=== PATIENT | female | born 1980 | race Caucasian/White ===

== ENCOUNTER 2017-07-01 08:13 | Emergency (ER) | payer OTHER ==
[~2017-07-01] VITALS: Ht 172.7 cm; Wt 75.8 kg
[~2017-07-01 08:13] MED LIST: ALBU90OI INH; AMOCLA875; AMOCLA875 PO; AMOX500 PO; ANTISEPTIC SKI237 ML TOP; AZIT500 PO; BENZ100A PO; Bactrim Ds Tab1 EACH PO; CEPH500 PO; Cleocin HCl150 MG PO; HIBICLENS120 ML EXT; HYDACE5 PO; HYDACE7.5 PO; HYDGUAL120; HYDGUAL120 PO; IBUP400; IBUP600 PO; IBUP800 PO; Keflex500 MG PO; Monodox100 MG PO; NAPR220 PO; OXYACE5T PO; PRED10 PO; PROBIOTIC1 EAC1 PO; Prilosec Otc20 MG PO; SPACER IH; SULTRIDS PO; Ultram50 MG PO; VITAMINS PO
[2017-07-01] MEDS ORDERED: IBUP800 PO (09:42)
== END 2017-07-01 10:32 | disposition home or self-care (01) ==
LOC: ER 08:13
DX: M77.12 Lateral epicondylitis, left elbow (principal); F17.210 Nicotine dependence, cigarettes, uncomplicated; Z86.19 Personal history of other infectious and parasitic diseases
CPT/HCPCS: 99282

== ENCOUNTER 2017-10-07 10:30 | Emergency (ER) | payer OTHER ==
[~2017-10-07] VITALS: Ht 170.2 cm; Wt 77.1 kg
[2017-10-07] MEDS ORDERED: HYDR1TAB94 PO (11:30)
[2017-10-07] MEDS ORDERED: IBUP400 PO (11:30)
[2017-10-07] MEDS ORDERED: Keflex500 MG PO (11:30)
== END 2017-10-07 12:12 | disposition home or self-care (01) ==
LOC: ER 10:30
DX: L02.31 Cutaneous abscess of buttock (principal); L03.317 Cellulitis of buttock; F17.210 Nicotine dependence, cigarettes, uncomplicated
CPT/HCPCS: 10060; 99282-25

== ENCOUNTER 2018-05-29 18:29 | Emergency (ER) | payer OTHER ==
[~2018-05-29] VITALS: Ht 175.3 cm; Wt 78.0 kg
[~2018-05-29 18:29] MED LIST changes: +Cleocin HCl300 MG PO; +HYDR1TAB94 PO; +IBUP400 PO
[2018-05-29] MEDS ORDERED: Naprosyn500 MG PO (19:59)
== END 2018-05-29 20:09 | disposition home or self-care (01) ==
LOC: ER 18:29
DX: S53.402A Unspecified sprain of left elbow, initial encounter (principal); F17.210 Nicotine dependence, cigarettes, uncomplicated; X58.XXXA Exposure to other specified factors, initial encounter
CPT/HCPCS: 73080; 99283-25

== ENCOUNTER → 2020-07-04 | Outpatient (CLI) | payer OTHER ==
[~2020-07-04] MED LIST changes: +Naprosyn500 MG PO
== END ==
LOC: LAB 09:15 → LAB SHORT 09:15
PROVIDERS: Registered Nurse Community Health
DX: Z12.4 Encounter for screening for malignant neoplasm of cervix (principal)
CPT/HCPCS: G0123

== ENCOUNTER → 2021-10-10 | Outpatient (CLI) | payer OTHER | END | disposition home or self-care (01) | LOC: LAB 14:15 → LAB SHORT 14:15 | DX: N39.0 Urinary tract infection, site not specified (principal) | CPT/HCPCS: 87077; 87086; 87147; 87186 ==

== ENCOUNTER → 2023-11-07 | Outpatient (CLI) | payer OTHER ==
[2023-11-13 08:17] LABS: APTIMA MEDIA TYPE Unisex Swab; C. TRACHOMATIS BY TMA Negative (Negative); N. GONORRHOEAE BY TMA Negative (Negative); SPECIMEN SOURCE Vaginal
[2023-11-15 12:39] LABS: HPV HIGH RISK BY TMA Not Detected; HPV SOURCE Cervical
== END | disposition home or self-care (01) ==
LOC: LAB 11:00 → LAB SHORT 11:00
PROVIDERS: Nurse Practitioner Family
DX: Z12.4 Encounter for screening for malignant neoplasm of cervix (principal)
CPT/HCPCS: 87491; 87591; 87624; G0123